=== PATIENT | male | born 1990 | race Caucasian/White ===

== ENCOUNTER 2017-01-09 18:12 | Emergency (ER) | payer OTHER ==
--- NOTE | 2017-01-09 18:32 | UC ---
Throat Pain/Nasal Brad HPI - History of Current Complaint Stated Complaint: FLU LIKE SYMPTOMS Time Seen by Provider: 01/09/17 18:30
--- NOTE | 2017-01-09 18:39 | UC ---
UC General HPI - HPI Summary HPI Summary: 26 y/o male presents to the urgent care c/o abdominal pain, fever, body aches, dry cough, mild nasal congestion for the past 2 days. Pt states he had nausea yesterday. this morning he had fever with decrease appetite and increase abdominal pain. He took Tylenol PO around 1300pm to alleviate symptoms. Pt had a normal bowel movement. He has been drinking fluids. Pain is 7/10 specially in the RT lower side. Pt denies V/D, chest pain, blood in the stool, recent travel , sick contacts, Hx of STD's. - History of Current Complaint Chief Complaint: UCGeneralIllness Stated Complaint: FLU LIKE SYMPTOMS Time Seen by Provider: 01/09/17 18:30 Hx Obtained From: Patient Onset/Duration: Sudden Onset, Lasting Days - 2 days, Still Present, Worse Since - this morning Timing: Constant Onset Severity: Mild Current Severity: Moderate Pain Intensity: 7 Pain Location at: RLQ Pain Radiates to: all his abdomen Associated Signs & Symptoms: Positive: Abdominal Pain, Fever, Nausea, Weakness, Other - body aches, decrease appetite - Allergy/Home Medications Allergies/Adverse Reactions: Allergies Allergy/AdvReac Type Severity Reaction Status Date / Time No Known Allergies Allergy Verified 01/09/17 18:35 PMH/Surg Hx/FS Hx/Imm Hx Previously Healthy: Yes Respiratory History: Asthma - Surgical History Surgical History: None - Family History Known Family History: Positive: Diabetes - Social History Occupation: Employed Full-time Lives: With Family Alcohol Use: None Substance Use Type: None Smoking Status (MU): Heavy Every Day Tobacco Smoker Review of Systems Constitutional: Fever Skin: Negative Eyes: Negative ENT: Negative, Nasal Discharge Respiratory: Cough - dry Cardiovascular: Negative Gastrointestinal: Nausea Genitourinary: Negative Motor: Negative Neurovascular: Negative Musculoskeletal: Negative Neurological: Headache Psychological: Negative Is Patient Immunocompromised?: No All Other Systems Reviewed And Are Negative: Yes Physical Exam Triage Information Reviewed: Yes Vital Signs: Initial Vital Signs Temp 97.4 F 01/09/17 18:30 Pulse 75 01/09/17 18:30 Resp 16 01/09/17 18:30 BP 103/68 01/09/17 18:30 Pulse Ox 100 01/09/17 18:30 - Additional Comments Vital Signs Reviewed: Yes General:Patient is a well developed and nourished male who is sitting comfortable in the examining table. Patient is not in any acute respiratory distress. Eyes: Positive: Conjunctiva Clear - PERRLA, EOMI, fundi grossly normal ENT: Positive: Normal ENT inspection, Hearing grossly normal, Pharynx normal, TMs normal Neck: Positive: Supple, Nontender, No Lymphadenopathy Respiratory: Positive: Chest non-tender, Lungs clear, Normal breath sounds, No respiratory distress Cardiovascular: Positive: RRR,S1 and S2 present, No Murmur, Pulses Normal, Brisk Capillary Refill Abdomen Description: Positive: Flat with no distention. No surface trauma, scars, incisions. hyperactive bowel sounds present in all four quadrants. tenderness, guarding, rigidity to palpation. No masses palpated, no pulsation in epigastric area. No organomegaly. Negative Fleming signs. No periumbilical tenderness to deep palpation of RLQ with guarding . No rebound in the lower quadrants. Positive over McBurneys point. Good femoral pulses bilaterally. No hernia noted. No CVAT bilaterally Musculoskeletal: Positive: Strength Intact, ROM Intact, No Edema,FROM in all major joints, no edema, no cyanosis or clubbing. Neuro: Alert and oriented x 3. No acute neurological deficits. Speech is normal. Psycological: WNL Skin: Dry and warm Course/Dx - Course Course Of Treatment: 26 y/o male presents to the urgent care c/o abdominal pain , fever, body aches, dry cough, mild nasal congestion for the past 2 days. Pt states he had nausea yesterday. this morning he had fever with decrease appetite and increase abdominal pain. He took Tylenol PO around 1300pm to alleviate symptoms. Pt had a normal bowel movement. He has been drinking fluids. Pain is 7/10 specially in the RT lower side. Pt denies V/D, chest pain, blood in the stool, recent travel, sick contacts, Hx of STD's. Hx obtained. Pt with RLQ pain and guarding on deep palpation on examination.Influenza A&B ordered. Result: negative. Dr Villatoro consulted on Pt's symptoms. He recommended Pt should go to the ER. We strongly advised Pt to go immediately to the ER for further images and BW to r/o appendicitis or other abdominal etiology. Advised on the risks of not going. He and his accepted to go by private car to [facility] in [place]. I called [facility] in [place] and I spoke to Kobe LOPEZ and he accepted the patient. Pt left the clinic hemodynamically stable, A&OX3, left clinic ambulating. - Differential Dx - Multi-Symptom Differential Diagnoses: Urinary Tract Infection, Other - appendicitis, renal colic, influenza, tick born illness, Provider Diagnoses: 1- Acute RLQ abdominal pain. 2-fever - Physician Notifications Discussed Patient Care With: Jemal Villatoro - Dr Villatoro agreed with plan of care Discharge - Discharge Plan Condition: Stable Disposition: OTHER Discharge Disposition Comment: Recommended to go immediately to the [facility] for further treatment. Patient Education Materials: Acute Abdominal Pain (ED) Referrals: No Primary Care Phys,NOPCP [Primary Care Provider] - Additional Instructions: I strongly advise you to go to the [facility] for further management in your abdominal pain and other symptoms to r/o appendicitis or other abdominal etiology. Risks of not going to the ER can be rupture of appendix, sepsis or .
== END 2017-01-09 19:13 ==
LOC: UCCORT 18:12
DX: R10.31 Right lower quadrant pain (principal); R50.9 Fever, unspecified; R11.0 Nausea; R53.1 Weakness; M79.1 Myalgia; J45.909 Unspecified asthma, uncomplicated; F17.210 Nicotine dependence, cigarettes, uncomplicated
CPT/HCPCS: 87502; 99202; G0463

== ENCOUNTER 2017-07-26 14:50 | Emergency (ER) | payer OTHER ==
[2017-07-26 15:25] VITALS: BP 122/90
[2017-07-26] MEDS ORDERED: Tetan/Diph/Pertus SYR(Tdap)* 0.5 ML SYR(BOOSTRIX) use SYR IM ONE (15:45)
--- NOTE | 2017-07-26 15:45 | UC ---
Eye Complaint HPI - HPI Summary HPI Summary: Pt presents with c/o bilateral eye redness and purulent discharge X 1 day. Pt also reports possible FB from exposure to dust and other particles in air at work. Pt also, c/ o toothache that he has had X 2 months. - History of Current Complaint Chief Complaint: UCEye Stated Complaint: BILATERAL EYE COMP Time Seen by Provider: 07/26/17 15:15 Hx Obtained From: Patient Onset/Duration: Sudden Onset, Still Present Timing: Constant Severity Initially: Mild Severity Currently: Moderate Pain Intensity: 7 Character: Foreign Body Sensation Aggravating Factor(s): Nothing Alleviating Factor(s): Nothing Associated Signs And Symptoms: Positive: Drainage (Purulent) - Risk Factors Penetrating Injury Risk Factor: Projectile Globe Rupture Risk Factors: Negative Acute Glaucoma Risk Factors: Negative Optic Artery Occlusion Risk Factors: Negative - Allergies/Home Medications Allergies/Adverse Reactions: Allergies Allergy/AdvReac Type Severity Reaction Status Date / Time No Known Allergies Allergy Verified 07/26/17 15:26 Home Medications: Home Medications Albuterol HFA INHALER* [Ventolin HFA Inhaler*] 2 puff INH Q4H PRN 07/26/17 [ History Confirmed 07/26/17] Ibuprofen TAB* [Motrin TAB* 800 MG] 800 mg PO Q8H PRN 07/26/17 [History Confirmed 07/26/17] PMH/Surg Hx/FS Hx/Imm Hx Previously Healthy: Yes - Surgical History Surgical History: Yes Surgery Procedure, Year, and Place: TONSILS, wisdom teeth, abdominal MRSA - Family History Known Family History: Positive: Diabetes - Social History Occupation: Employed Full-time Lives: With Family Alcohol Use: Occasionally Substance Use Type: None Smoking Status (MU): Heavy Every Day Tobacco Smoker Have You Smoked in the Last Year: Yes Household Exposure Type: Cigarettes - Immunization History Most Recent Tetanus Shot: UNKNOWN Vaccination Up to Date: No Review of Systems Constitutional: Negative Skin: Negative Eyes: Drainage, Eye Redness ENT: Negative Respiratory: Negative Cardiovascular: Negative Gastrointestinal: Negative Genitourinary: Negative Motor: Negative Neurovascular: Negative Musculoskeletal: Negative Neurological: Negative Psychological: Negative Is Patient Immunocompromised?: No All Other Systems Reviewed And Are Negative: Yes Physical Exam Triage Information Reviewed: Yes Appearance: Well-Appearing Vital Signs: Initial Vital Signs Temp 99.5 F 07/26/17 15:15 Pulse 91 07/26/17 15:15 Resp 18 07/26/17 15:15 BP 122/90 07/26/17 15:15 Pulse Ox 99 07/26/17 15:15 Vital Signs Reviewed: Yes Eyes: Positive: Conjunctiva Inflamed - bilateral, Discharge - bila ENT Exam: Normal Dental Exam: Other Dental: Positive: Gross Decay/Caries @ Neck exam: Normal Respiratory Exam: Normal Respiratory: Positive: No respiratory distress Musculoskeletal Exam: Normal Neurological Exam: Normal Psychological Exam: Normal Skin Exam: Normal Eye Complaint Course/Dx - Differential Dx/Diagnosis Differential Diagnosis/HQI/PQRI: Conjunctivitis, Corneal Abrasion, Foreign Body , Other - dental caries Provider Diagnoses: conjunctivitis. toothache Discharge - Sign-Out/Discharge Documenting (check all that apply): Discharge/Admit/Transfer - Discharge Plan Condition: Stable Disposition: HOME Prescriptions: Lidocaine 2% VISCOUS* [Xylocaine 2% Viscous*] 15 ml SWISH SPIT Q4H PRN #1 btl PRN Reason: Pain Polymyx/Trimethoprim OPTH* [Polytrim OPHTH*] 3 drop BOTH EYES Q8H #1 btl Patient Education Materials: Toothache (ED), Conjunctivitis (ED) Forms: *Work Release Referrals: No Primary Care Phys,NOPCP [Primary Care Provider] - If Needed - Billing Disposition and Condition Condition: STABLE Disposition: Home
== END 2017-07-26 16:01 | disposition home or self-care (01) ==
LOC: UCCORT 14:50
DX: H10.9 Unspecified conjunctivitis (principal); K08.89 Other specified disorders of teeth and supporting structures; F17.210 Nicotine dependence, cigarettes, uncomplicated
CPT/HCPCS: 90715; 99212; G0463

== ENCOUNTER 2017-11-29 16:58 | Emergency (ER) | payer OTHER ==
[2017-11-29 18:34] VITALS: BP 115/76
--- NOTE | 2017-11-29 18:43 | ED ---
Throat Pain/Nasal Congestion - History of Current Complaint Chief Complaint: UCEye Time Seen by Provider: 11/29/17 18:37 Hx Obtained From: Patient Onset/Duration: Sudden Onset, Lasting Days Severity: Moderate - Allergies/Home Medications Allergies/Adverse Reactions: Allergies Allergy/AdvReac Type Severity Reaction Status Date / Time No Known Allergies Allergy Verified 11/29/17 18:31 PMH/Surg Hx/FS Hx/Imm Hx Previously Healthy: Yes Respiratory History: Reports: Hx Asthma - Surgical History Surgery Procedure, Year, and Place: TONSILS, wisdom teeth, abdominal MRSA Infectious Disease History: Yes Infectious Disease History: Reports: 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 Denies: Traveled Outside the [place] in Last 30 Days - Family History Known Family History: Positive: Diabetes - Social History Alcohol Use: Occasionally Substance Use Type: Reports: None Smoking Status (MU): Heavy Every Day Tobacco Smoker Have You Smoked in the Last Year: Yes Review of Systems Constitutional: Negative Positive: Blurred Vision, Drainage ENT: Negative Cardiovascular: Negative Respiratory: Negative Gastrointestinal: Negative Genitourinary: Negative Musculoskeletal: Negative Skin: Negative Neurological: Negative All Other Systems Reviewed And Are Negative: Yes Physical Exam Triage Information Reviewed: Yes Vital Signs On Initial Exam: Initial Vitals Temp Pulse Resp BP Pulse Ox 36.6 C 86 12 115/76 100 11/29/17 18:29 11/29/17 18:29 11/29/17 18:29 11/29/17 18:29 11/29/17 18:29 Vital Signs Reviewed: Yes Appearance: Positive: Well-Appearing Skin: Positive: Warm, Dry Eyes: Positive: Other: - minimal conjunctival injection left eye fundoscopic exam normal no photophobia ENT: Positive: Normal ENT inspection Diagnostics - Vital Signs Vital Signs Temp Pulse Resp BP Pulse Ox 11/29/17 18:29 36.6 C 86 12 115/76 100 - Laboratory Lab Statement: Any lab studies that have been ordered have been reviewed, and results considered in the medical decision making process. EENT Course/Dx - Diagnoses Provider Diagnoses: Conjunctivitis Discharge - Sign-Out/Discharge Documenting (check all that apply): Patient Departure All imaging exams completed and their final reports reviewed: Yes - Discharge Plan Condition: Good Disposition: HOME Prescriptions: Gentamicin 0.3% OPHTH.SOLN* 1 drop LEFT EYE Q4H 7 Days #1 btl Referrals: No Primary Care Phys,NOPCP [Primary Care Provider] - - Billing Disposition and Condition Condition: GOOD Disposition: Home
== END 2017-11-29 19:35 | disposition home or self-care (01) ==
LOC: UCCORT 16:58
DX: H10.9 Unspecified conjunctivitis (principal); F17.210 Nicotine dependence, cigarettes, uncomplicated
CPT/HCPCS: 99212; G0463

== ENCOUNTER 2018-05-11 13:05 | Emergency (ER) | payer OTHER ==
[2018-05-11 13:40] VITALS: BP 118/85
--- NOTE | 2018-05-11 14:22 | UC ---
Respiratory Complaint HPI - HPI Summary HPI Summary: Pt presents with c/o cough, nasal congestion, chest pain that began at when he arrived at facility. Pt c/o chills, body aches, nasal congestion X 3 weeks. Pt has hx of asthma but morton not take any medication for it on a daily basis. - History of Current Complaint Chief Complaint: UCGeneralIllness Stated Complaint: VOMITING/SINUSES/COUGH Time Seen by Provider: 05/11/18 13:55 Hx Obtained From: Patient Onset/Duration: Gradual Onset, Lasting Weeks, Still Present Timing: Constant Severity Initially: Mild Severity Currently: Moderate Pain Intensity: 0 Character: Cough: Nonproductive Aggravating Factors: Exertion, Deep Breaths, Recumbent Position Alleviating Factors: Nothing Associated Signs And Symptoms: Positive: Chills, URI, Nasal Congestion - Risk Factors Pulmonary Embolism Risk Factors: Smoking Cardiac Risk Factors: Smoking Pseudomonas Risk Factors: Chronic Lung Disease - asthma Tuberculosis Risk Factors: Smoking - Allergies/Home Medications Allergies/Adverse Reactions: Allergies Allergy/AdvReac Type Severity Reaction Status Date / Time No Known Allergies Allergy Verified 05/11/18 13:39 Home Medications: Home Medications Naproxen Sodium [Aleve] 220 mg PO Q12HR PRN 05/11/18 [History Confirmed 05/11/18 ] Pseudoephedrine TAB* [Sudafed TAB*] 30 mg PO Q6H PRN 05/11/18 [History Confirmed 05/11/18] PMH/Surg Hx/FS Hx/Imm Hx Previously Healthy: Yes Respiratory History: Asthma - Surgical History Surgical History: Yes Surgery Procedure, Year, and Place: TONSILS, wisdom teeth, abdominal MRSA - Family History Known Family History: Positive: Diabetes - Social History Occupation: Employed Full-time Lives: With Family Alcohol Use: Occasionally Substance Use Type: None Smoking Status (MU): Heavy Every Day Tobacco Smoker Type: Cigarettes Amount Used/How Often: 1/2 PPD Have You Smoked in the Last Year: Yes Household Exposure Type: Cigarettes - Immunization History Most Recent Tetanus Shot: UNKNOWN Vaccination Up to Date: No Review of Systems All Other Systems Reviewed And Are Negative: Yes Constitutional: Positive: Chills, Fatigue Skin: Positive: Negative Eyes: Positive: Negative ENT: Positive: Sinus Congestion Respiratory: Positive: Cough Cardiovascular: Positive: Chest Pain - reproducible with palpation Gastrointestinal: Positive: Negative Genitourinary: Positive: Negative Motor: Positive: Negative Neurovascular: Positive: Negative Musculoskeletal: Positive: Myalgia Neurological: Positive: Negative Psychological: Positive: Negative Is Patient Immunocompromised?: No Physical Exam Triage Information Reviewed: Yes Appearance: Ill-Appearing Vital Signs: Initial Vital Signs Temp 98.3 F 05/11/18 13:36 Pulse 70 05/11/18 13:36 Resp 18 05/11/18 13:36 BP 118/85 05/11/18 13:36 Pulse Ox 100 05/11/18 13:36 Vital Signs Reviewed: Yes Eye Exam: Normal ENT: Positive: Nasal congestion Dental Exam: Normal Neck exam: Normal Respiratory Exam: Normal, Other - c/o tendernes sleft anteiro upper chest wall Respiratory: Positive: Lungs clear, Normal breath sounds, No respiratory distress Cardiovascular Exam: Normal Musculoskeletal Exam: Normal Neurological Exam: Normal Psychological Exam: Normal Skin Exam: Normal Diagnostics - Radiology No standard instances Radiology Interpretation Completed By: Radiologist - REPORT: Clear lungs and pleural spaces. Negative for pneumothorax. The heart, pulmonary vasculature, and mediastinal contours are unremarkable. Unremarkable osseous structures and soft tissue contours. IMPRESSION: #. No evidence for acute intrathoracic disease. Respiratory Course/Dx - Differential Dx/Diagnosis Differential Diagnosis/HQI/PQRI: Asthma, Bronchitis Provider Diagnosis: Viral syndrome Discharge - Sign-Out/Discharge Documenting (check all that apply): Patient Departure All imaging exams completed and their final reports reviewed: Yes - Discharge Plan Condition: Stable Disposition: HOME Prescriptions: Albuterol HFA INHALER* [Ventolin HFA Inhaler*] 1 - 2 puff INH Q4H PRN #1 mdi PRN Reason: Sob/Wheezing predniSONE TAB* [Deltasone 10 MG TAB*] 30 mg PO DAILY #12 tab Patient Education Materials: Viral Syndrome (ED) Forms: *Work Release Referrals: Care [facility] [Outside] - If Needed No Primary Care Phys,NOPCP [Primary Care Provider] - - Billing Disposition and Condition Condition: STABLE Disposition: Home
== END 2018-05-11 14:39 | disposition home or self-care (01) ==
LOC: UCCORT 13:05
DX: B34.9 Viral infection, unspecified (principal); J45.909 Unspecified asthma, uncomplicated; F17.210 Nicotine dependence, cigarettes, uncomplicated
CPT/HCPCS: 71046; 99212; G0463

== ENCOUNTER 2018-08-10 18:50 | Emergency (ER) | payer OTHER ==
[2018-08-10 19:33] VITALS: BP 98/54
--- NOTE | 2018-08-10 19:45 | UC ---
Respiratory Complaint HPI - HPI Summary HPI Summary: Barky cough, runny nose, chills, sore throat and intermittent fever x4-5days. Right ear plugged feeling. whole house is sick. has not stopped smoking. - History of Current Complaint Chief Complaint: UCRespiratory Stated Complaint: COUGH,RUNNY NOSE, FEVER Time Seen by Provider: 08/10/18 19:39 Hx Obtained From: Patient Onset/Duration: Gradual Onset Pain Intensity: 0 Pain Scale Used: 0-10 Numeric Character: Cough: Nonproductive Aggravating Factors: Nothing Alleviating Factors: Nothing - Allergies/Home Medications Allergies/Adverse Reactions: Allergies Allergy/AdvReac Type Severity Reaction Status Date / Time No Known Allergies Allergy Verified 08/10/18 19:33 Home Medications: Home Medications guaiFENesin [Mucinex] 600 mg PO BID 08/10/18 [History Confirmed 08/10/18] PMH/Surg Hx/FS Hx/Imm Hx - Additional Past Medical History Additional PMH: no chronic conditions. Previously Healthy: Yes - Surgical History Surgical History: Yes Surgery Procedure, Year, and Place: TONSILS, wisdom teeth, abdominal MRSA - Family History Known Family History: Positive: Diabetes - Social History Alcohol Use: Rare Substance Use Type: None Smoking Status (MU): Heavy Every Day Tobacco Smoker Type: Cigarettes Amount Used/How Often: 1/2 PPD Have You Smoked in the Last Year: Yes Household Exposure Type: Cigarettes - Immunization History Most Recent Tetanus Shot: UNKNOWN Vaccination Up to Date: No Review of Systems All Other Systems Reviewed And Are Negative: Yes Constitutional: Positive: Fever, Chills Skin: Negative: Rash Eyes: Negative: Drainage ENT: Positive: Ear Ache, Sinus Congestion. Negative: Sore Throat Respiratory: Positive: Cough. Negative: Other - denies wheezing. Gastrointestinal: Negative: Abdominal Pain, Vomiting, Diarrhea Musculoskeletal: Negative: Myalgia Neurological: Negative: Headache Physical Exam Triage Information Reviewed: Yes Appearance: Well-Appearing, Other: - +SMELLS LIKE HEAVY SMOKE Vital Signs: Initial Vital Signs Temp 98.6 F 08/10/18 19:31 Pulse 83 08/10/18 19:31 Resp 16 08/10/18 19:31 BP 98/54 08/10/18 19:31 Pulse Ox 99 08/10/18 19:31 Vital Signs Reviewed: Yes Eye Exam: Normal ENT: Positive: Pharynx normal, Nasal congestion, TMs normal, Uvula midline Neck: Positive: Supple, Nontender, No Lymphadenopathy Respiratory Exam: Normal Cardiovascular Exam: Normal Neurological: Positive: Alert Skin: Negative: Rashes Respiratory Course/Dx - Course Course Of Treatment: 5 day hx of cough in a smoker. Initial fever has resolved. daughter and partner also sick w/ same symptoms. has not tried otc meds. +sick contacts. vitals are good. exam unremarkable and advised pt to f/u w/ pcp for R ear issues. NO resp. distress or signs of pneumonia. pt. smelled heavily of smoke. Of note daughter who was present in exam room today had lice so will tx the family. - Differential Dx/Diagnosis Differential Diagnosis/HQI/PQRI: Bronchitis, Exacerbation Of COPD, Lower Resp Infection Provider Diagnosis: URI (upper respiratory infection) Discharge - Sign-Out/Discharge Documenting (check all that apply): Patient Departure All imaging exams completed and their final reports reviewed: No Studies - Discharge Plan Condition: Good Disposition: HOME Prescriptions: [place]ane SHAMPOO* [Kwell Shampoo*] 1 applic TOPICAL SEE INSTRUCTIONS #60 ml Patient Education Materials: How to Stop Smoking (ED) Referrals: No Primary Care Phys,NOPCP [Primary Care Provider] - Additional Instructions: Today you do not have pneumonia but if this cough continues you should see a primary care provider. [facility] can be called to set up appointment. - Billing Disposition and Condition Condition: GOOD Disposition: Home - Attestation Statements Provider Attestation: Per institutional requirements, I have reviewed the chart, however, I was not consulted specifically or made aware of this patient by the midlevel provider. I did not personally evaluate, interact with , or disposition this patient.
== END 2018-08-10 20:14 | disposition home or self-care (01) ==
LOC: UCCORT 18:50
DX: J06.9 Acute upper respiratory infection, unspecified (principal); F17.210 Nicotine dependence, cigarettes, uncomplicated
CPT/HCPCS: 99211; G0463

== ENCOUNTER 2018-09-17 08:43 | Emergency (ER) | payer OTHER ==
[2018-09-17 08:57] VITALS: BP 111/75
--- NOTE | 2018-09-17 09:06 | UC ---
Hand/Wrist HPI - HPI Summary HPI Summary: c/o bilateral hands with swelling, numbness and tingling x 1 week. 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 States pain becomes sharp when attempting to make a fist. - History Of Current Complaint Chief Complaint: UCUpperExtremity Stated Complaint: SWOLLEN/TINGLING HANDS Time Seen by Provider: 09/17/18 08:49 Hx Obtained From: Patient ?: No Onset/Duration: Sudden Onset, Lasting Days Severity Initially: Mild Severity Currently: Moderate Pain Intensity: 6 - Allergies/Home Medications Allergies/Adverse Reactions: Allergies Allergy/AdvReac Type Severity Reaction Status Date / Time No Known Allergies Allergy Verified 09/17/18 08:52 PMH/Surg Hx/FS Hx/Imm Hx Previously Healthy: Yes - Surgical History Surgical History: Yes Surgery Procedure, Year, and Place: TONSILS, wisdom teeth, abdominal MRSA - Family History Known Family History: Positive: Diabetes - Social History Alcohol Use: Rare Substance Use Type: None Smoking Status (MU): Heavy Every Day Tobacco Smoker Type: Cigarettes Amount Used/How Often: 1/2 PPD Have You Smoked in the Last Year: Yes Household Exposure Type: Cigarettes - Immunization History Most Recent Tetanus Shot: UNKNOWN Vaccination Up to Date: No Review of Systems All Other Systems Reviewed And Are Negative: Yes Musculoskeletal: Positive: Arthralgia, Decreased ROM, Myalgia Neurological: Positive: Numbness Physical Exam Triage Information Reviewed: Yes Appearance: Well-Appearing, Well-Nourished, Pain Distress Vital Signs: Initial Vital Signs Temp 98.5 F 09/17/18 08:53 Pulse 79 09/17/18 08:53 Resp 15 09/17/18 08:53 BP 111/75 09/17/18 08:53 Pulse Ox 100 09/17/18 08:53 Vital Signs Reviewed: Yes Eye Exam: Normal ENT Exam: Normal Dental Exam: Normal Neck exam: Normal Respiratory Exam: Normal Cardiovascular Exam: Normal Abdominal Exam: Normal Bowel Sounds: Positive: Present Musculoskeletal: Positive: Strength Intact, ROM Limited @, Edema @ - mild edmea in bilateral wrists, neg phalans test, hypetonicity of the flexors and brachiolradialis bilaterally Neurological Exam: Normal Psychological Exam: Normal Skin Exam: Normal Hand/Wrist Course/Dx - Course Course Of Treatment: hx obtained, exam performed ,meds reviewed, education given on stretches and demonstration given. antiinflammatory prescribed. recommend follow up if not improving. - Differential Dx/Diagnosis Differential Diagnosis/HQI/PQRI: Sprain, Strain, Tendonitis Provider Diagnosis: Tendinitis of flexor tendon of both hands Discharge - Sign-Out/Discharge Documenting (check all that apply): Patient Departure All imaging exams completed and their final reports reviewed: No Studies - Discharge Plan Condition: Stable Disposition: HOME Prescriptions: Naproxen [Naprosyn 500 mg tab] 500 mg PO BID #60 tablet Patient Education Materials: Paresthesia (ED), Tendinitis (ED) Referrals: No Primary Care Phys,NOPCP [Primary Care Provider] - Valente Walton MD [Medical Doctor] - Additional Instructions: 1. use the medication as prescribed 2. Heat the arms with heat pack or warm water 3. then stretch the wrist and fingers multiple times a day 4. If not improving with stretching and self care, follow up with orthopedics. - Billing Disposition and Condition Condition: STABLE Disposition: Home
== END 2018-09-17 09:21 | disposition home or self-care (01) ==
LOC: UCCORT 08:43
DX: M77.9 Enthesopathy, unspecified (principal); F17.210 Nicotine dependence, cigarettes, uncomplicated; Z86.14 Personal history of Methicillin resistant Staphylococcus aureus infection
CPT/HCPCS: 99212; G0463